=== PATIENT | male | born 1955 ===

== ENCOUNTER 2017-03-11 11:13 | Emergency (ER) | payer MEDICAID ==
[2017-03-11 11:20] VITALS: BMI 36.6
[2017-03-11 11:23] VITALS: RESP 18
[2017-03-11] MEDS ORDERED: Piperacillin/Tazobact 3.375 gm 0 ML IVPB ONE (12:08)
--- NOTE | 2017-03-11 12:34 | C.PDOC ---
History Of Present Illness 61 yr old male with PMHx of Parkinson, presents to the ER for evaluation of hiccups for the past 1 week. patient states he was seen by his PMD who treated him with Reglan but reports no relief. Patient states the hiccups won't let him sleep. Denies fever, chest pain, palpitations, SOB, nausea, vomiting, headache, weakness or numbness. Time Seen by Provider: 03/11/17 11:30 Chief Complaint (Nursing): Medical Clearance History Per: Patient History/Exam Limitations: no limitations Onset/Duration Of Symptoms: Days (1 week) Past Medical History Reviewed: Historical Data, Nursing Documentation, Vital Signs Vital Signs: Last Vital Signs Temp 98.3 F 03/11/17 12:59 Pulse 86 03/11/17 12:59 Resp 18 03/11/17 12:59 BP 122/71 03/11/17 12:59 Pulse Ox 100 03/11/17 12:59 - Medical History PMH: Parkinson's Disease Family History: States: No Known Family Hx - Social History Hx Alcohol Use: No Hx Substance Use: No - Immunization History Hx Tetanus Toxoid Vaccination: No Hx Influenza Vaccination: No Hx Pneumococcal Vaccination: No Review Of Systems Except As Marked, All Systems Reviewed And Found Negative. Constitutional: Negative for: Fever Cardiovascular: Negative for: Chest Pain, Palpitations Respiratory: Negative for: Shortness of Breath Gastrointestinal: Negative for: Nausea, Vomiting Neurological: Negative for: Weakness, Numbness, Headache Physical Exam - Physical Exam Appears: Non-toxic, No Acute Distress Skin: Warm, Dry, No Rash Head: Atraumatic, Normacephalic Oral Mucosa: Moist Throat: Normal, No Erythema, No Exudate, No Drooling Neck: Normal, Normal ROM, Supple Chest: Symmetrical, No Tenderness Cardiovascular: Rhythm Regular, No Murmur Respiratory: Normal Breath Sounds, No Rales, No Rhonchi, No Stridor, No Wheezing Gastrointestinal/Abdominal: Normal Exam, Soft, No Tenderness, No Guarding, No Rebound, Other ((+) Obese) Extremity: Normal ROM, No Swelling Neurological/Psych: Oriented x3, Normal Speech, Normal Motor ED Course And Treatment O2 Sat by Pulse Oximetry: 99 (RA) Pulse Ox Interpretation: Normal Progress Note: Patient was observed in ER for 1 and half hour, no hiccups were noticed. Patient is instructed to follow up with Neurologist for further evaluation in 1-2 days. Case discussed with Dr Kinney, who notes no further work up needed and agreed upon plan and treatment. Disposition - Disposition Disposition: HOME/ ROUTINE Disposition Time: 12:31 Condition: STABLE Additional Instructions: Vaya a torres mdico o la clnica en 2-5 sheldon sin falta, para mas evaluacin. Volver a la mayela de emergencia en cualquier momento si los sntomas persisten o empeoran. Instructions: Hiccups (ED) Forms: [employer] (Wolof) Print Language: TONGAN - Clinical Impression Clinical Impression: Hiccups - PA / CAREER SPECIALIST / Resident Statement MD/DO has reviewed & agrees with the documentation as recorded. - Scribe Statement The provider has reviewed the documentation as recorded by the Scribe Ambreen Samuels All medical record entries made by the Scribe were at my direction and personally dictated by me. I have reviewed the chart and agree that the record accurately reflects my personal performance of the history, physical exam, medical decision making, and the department course for this patient. I have also personally directed, reviewed, and agree with the discharge instructions and disposition.
[2017-03-11 13:00] VITALS: BP 122/71; PULSE 86; TEMP 98.3
[2017-03-11 13:52] VITALS: O2SAT 99
--- NOTE | 2017-03-12 21:38 | CARD ---
APPROVED REPORT EKG Measurement Heart [id number] <Conclusion> Sinus rhythm with marked sinus arrhythmia Otherwise normal ECG
== END 2017-03-11 13:26 | disposition home or self-care (01) ==
LOC: C.ER 11:13
DX: R06.6 Hiccough (principal)